=== PATIENT | male | born 2000 | race Caucasian/White ===

== ENCOUNTER 2024-07-17 20:21 | Emergency (ER) | payer SELFPAY ==
[~2024-07-17] VITALS: Ht 188 cm; Wt 79.4 kg
[2024-07-17] MEDS: EPINEPHRINE (1:1000) 1 MG/ML AMPUL SUBCUT ONE (20:30)
[2024-07-17] MEDS ORDERED: diphenhydrAMINE HCL 50 MG/ML VIAL ONE (20:33)
[2024-07-17] MEDS ORDERED: EPINEPHRINE (1:1000) 1 MG/ML AMPUL ONE (20:33)
[2024-07-17] MEDS ORDERED: methylPREDNISolone SOD SUCC 125 MG/2ML VIAL ONE (20:33)
[2024-07-17] MEDS ORDERED: FAMOTIDINE/PF INJ 20 MG/2 ML VIAL IV ONE (20:33)
[2024-07-17] MEDS: IPRATROPIUM NEB FS 0.5 MG/2.5 ML AMPUL.NEB NEB ONE (20:34)
[2024-07-17] MEDS: RACEPINEPHRINE HCL 2.25% NEB 0.5 ML VIAL.NEB IH ONE (20:34)
[2024-07-17] MEDS: ALBUTEROL FS 2.5 MG/3 ML VIAL.NEB NEB ONE (20:34)
[2024-07-17] MEDS ORDERED: ALBUTEROL FS 2.5 MG/3 ML VIAL.NEB ONE (20:35)
[2024-07-17] MEDS ORDERED: RACEPINEPHRINE HCL 2.25% NEB 0.5 ML VIAL.NEB IH ONE (20:35)
[2024-07-17] MEDS ORDERED: IPRATROPIUM NEB FS 0.5 MG/2.5 ML AMPUL.NEB ONE (20:35)
[2024-07-17 20:42] VITALS: O2SAT 99
[2024-07-17] MEDS: FAMOTIDINE/PF INJ 20 MG/2 ML VIAL IV ONE (20:42)
[2024-07-17] MEDS: methylPREDNISolone SOD SUCC 125 MG/2ML VIAL IV ONE (20:42)
[2024-07-17] MEDS: diphenhydrAMINE HCL 50 MG/ML VIAL IV ONE (20:42)
[2024-07-17 20:46] LABS: BASOPHILS # (AUTO) 0.1 K/uL (0.0-0.2); BASOPHILS % (AUTO) 0.8 % (0.0-2.0); EOSINOPHILS # (AUTO) 0.2 K/uL (0.0-0.7); EOSINOPHILS % (AUTO) 1.8 % (0.0-6.0); HEMATOCRIT 50 % (39-51); HEMOGLOBIN 16.7 g/dL (13.5-17.5); LYMPHOCYTES # (AUTO) 7.2 K/uL (0.8-4.8); LYMPHOCYTES % (AUTO) 53.8 % (20.0-44.0); MEAN CORPUSCULAR HEMOGLOBIN 27 PG (26.0-33.0); MEAN CORPUSCULAR HGB CONC 33 g/dl (31.0-36.0); MEAN CORPUSCULAR VOLUME 82 fL (80-96); MONOCYTES # (AUTO) 0.7 K/uL (0.1-1.30); MONOCYTES % (AUTO) 5.3 % (2.0-12.0); NEUTROPHILS # (AUTO) 5.1 K/uL (1.8-8.9); NEUTROPHILS % (AUTO) 38.3 % (43.0-81.0); PLATELET COUNT (AUTO) 319 K/uL (150-450); RED CELL DISTRIBUTION WIDTH 13.2 % (11.5-15.0); WHITE BLOOD COUNT (AUTO) 13.4 K/uL (4.3-11.0)
[2024-07-17 20:53] LABS: CALCIUM, SERUM 9.8 mg/dL (8.5-10.1); CREATININE 0.9 mg/dL (0.6-1.3); POTASSIUM 3.4 mmol/L (3.5-5.1)
[2024-07-17 20:57] VITALS: O2SAT 100
[2024-07-17 20:58] VITALS: O2SAT 100
[2024-07-17 21:13] VITALS: O2SAT 100
[2024-07-17] MEDS ORDERED: PRED20TA PO (21:40)
[2024-07-17] MEDS ORDERED: EPIN0.3P3 IM (21:40)
[2024-07-17] MEDS ORDERED: HYDR-500 PO (21:40)
[2024-07-17] MEDS ORDERED: POTASSIUM CHLORIDE 10 MEQ TABLET.SA ONE (22:29)
[2024-07-17] MEDS: POTASSIUM CHLORIDE 10 MEQ TABLET.SA PO ONE (22:30)
[2024-07-18 02:03] VITALS: BP 111/86; TEMP 98; O2SAT 99
== END 2024-07-18 02:08 | disposition home or self-care (01) ==
LOC: ER 20:39
DX: T78.01XA Anaphylactic reaction due to peanuts, initial encounter (principal); R06.2 Wheezing; L29.9 Pruritus, unspecified; Y92.89 Other specified places as the place of occurrence of the external cause
CPT/HCPCS: 99285; 96374; 96375; 85025; 80048; 36415; 94799; 96372; 94640 ×2; J1200; J0171; J3490; J2919